=== PATIENT | female | born 1970 | race Caucasian/White ===

== ENCOUNTER 2017-06-04 18:38 | Emergency (ER) | payer BC, MEDICARE ==
[2017-06-04] MEDS ORDERED: hydrOXYzine HCL TAB* 50 MG PO ONE (21:32)
[2017-06-04] MEDS ORDERED: Hydrocortisone 0.5% OINT* 1 APPLIC TUBE TOPICAL ONE (21:32)
[2017-06-04 21:48] VITALS: BP 153/91
--- NOTE | 2017-06-04 22:33 | ED ---
Skin Complaint - HPI Summary HPI Summary: Patient presents to the ED with CC "bugs crawling out of my skin" with associated pruritis. She states she thinks the problem is that she has fluke worms. She states she had a friend tell her she thought it was fluke worms and the patient notes to eating a "bad cantaloupe" several weeks ago as well. She brings with her photos, "dried bugs" which are in a plastic wrap from which she dislodged from her skin and brown flakes which she had in her teeth for which she states the fluke worms are coming from. She states 1 month ago prior to coming to [place] from [place], she was in perfect health, had healthy teeth and gums and denies any skin conditions. Since arrival to the [place] area, she states all these symptoms began. She has a PCP in [place] but none currently. While she is just visiting this month, she plans to move here within the next month. She denies abdominal pain, N/V, weight loss/gain, fevers, sweats or chills. She denies travel or any allergies to the environment. She takes no medications and states she is otherwise healthy. She notes to a rash which is pruritic and across the bilateral forearms, nape of the neck and chest. - History of Current Complaint Chief Complaint: EDRashSkinAbscess Time Seen by Provider: 06/04/17 20:17 Stated Complaint: RASH ALL OVER Hx Obtained From: Patient Onset/Duration: Started Weeks Ago Skin Exposure Onset/Duration: Weeks Ago Timing: Constant Onset Severity: Moderate Current Severity: Moderate Pain Intensity: 0 Skin Location: Diffuse Character: Pruritus, Redness Aggravating Symptom(s): Nothing Alleviating Symptom(s): Nothing Associated Signs & Symptoms: Negative Related History: Possible Reaction to: Food, Possible Reaction to: Environmental Exposure - Allergy/Home Medications Allergies/Adverse Reactions: Allergies Allergy/AdvReac Type Severity Reaction Status Date / Time Hydrocodone Allergy Hives Verified 06/04/17 18:53 Oxycodone Allergy Hives Verified 06/04/17 18:53 PMH/Surg Hx/FS Hx/Imm Hx Previously Healthy: Yes - Immunization History Hx Pertussis Vaccination: No Immunizations Up to Date: Unable to Obtain/Confirm Infectious Disease History: No Infectious Disease History: Denies: Traveled Outside the [place] in Last 30 Days - Social History Occupation: Unemployed Lives: With Family Alcohol Use: None Hx Substance Use: No Substance Use Type: Reports: None Hx Tobacco Use: Yes Smoking Status (MU): Former Smoker Review of Systems Constitutional: Negative Negative: Fever, Chills, Fatigue Eyes: Negative Negative: Blurred Vision Negative: Dental Pain Cardiovascular: Negative Negative: Palpitations, Chest Pain Respiratory: Negative Negative: Abdominal Pain, Diarrhea, Nausea Positive: Other - few (4-5) small erythematous macules to the bilateral forearms resembling a small abrasion or bug bite Neurological: Negative Negative: Weakness, Numbness Psychological: Normal All Other Systems Reviewed And Are Negative: Yes Physical Exam Triage Information Reviewed: Yes Vital Signs On Initial Exam: Initial Vitals Temp Pulse Resp BP Pulse Ox 97.5 F 94 18 128/80 99 06/04/17 18:53 06/04/17 18:53 06/04/17 18:53 06/04/17 18:53 06/04/17 18:53 Completion Of Physical Exam Limited Due To: Dementia Appearance: Positive: Well-Appearing, No Pain Distress, Well-Nourished Skin: Positive: Skin Color Reflects Adequate Perfusion, Other - few (4-5) small erythematous macules to the bilateral forearms resembling a small abrasion or bug bite Head/Face: Positive: Normal Head/Face Inspection Eyes: Positive: EOMI, GARRY, Conjunctiva Clear Neck: Positive: Supple, No Lymphadenopathy Respiratory/Lung Sounds: Positive: Clear to Auscultation, Breath Sounds Present Cardiovascular: Positive: Normal, Pulses are Symmetrical in both Upper and Lower Extremities Musculoskeletal: Positive: Strength/ROM Intact Neurological: Positive: Sensory/Motor Intact, Alert, Oriented to Person Place, Time, Speech Normal Psychiatric: Positive: Normal - [place] Coma Scale Best Eye Response: 4 - Spontaneous Best Motor Response: 6 - Obeys Commands Best Verbal Response: 5 - Oriented Diagnostics - Vital Signs Vital Signs Temp Pulse Resp BP Pulse Ox 06/04/17 21:06 97.8 F 93 18 153/91 100 06/04/17 18:53 97.5 F 94 18 128/80 99 - Laboratory Lab Statement: Any lab studies that have been ordered have been reviewed, and results considered in the medical decision making process. Course/Dx - Course Course Of Treatment: During course of treatment, patient was evaluated for possible bug bites vs fluke worms vs GI issues vs general pruritis. She states she thinks the problem is that she has fluke worms. She states she had a friend tell her she thought it was fluke worms and the patient notes to eating a "bad cantaloupe" several weeks ago as well. She brings with her photos, "dried bugs" which are in a plastic wrap from which she dislodged from her skin and brown flakes which she had in her teeth for which she states the fluke worms are coming from. Denies fevers, sweats or chills. There is no concern for viral episode and unlikely fluke worms based on the presentation. She is given hydroxyzine for bilateral arm itching and hydrocortisone cream .5%. Patient agrees to follow up with beef specialist and channel lip wetter if symptoms become worse. It was explained to patient this is likely bug bites, but the pattern is not consistent with bed bugs. There is no identified burrows inbetwixt the fingers and no burrows obvious in the chest area. Will defer at this time for premetherin cream and again she is referred to derm for a more thorough workup of the skin lesions. - Differential Diagnoses - Skin Complaint Differential Diagnoses: Contact Dermatitis, Eczema, Head Lice, Scabies, Tick Born Illness - Diagnoses Provider Diagnoses: Generalized pruritus Discharge - Discharge Plan Condition: Stable Disposition: HOME Prescriptions: Hydrocortisone 0.5% CM(NF) [Hydrocortisone 0.5% CREAM(NF)] 1 applic .SEE ORDER BID #1 applic hydrOXYzine HCL TAB* [Atarax 25 MG TAB*] 25 mg PO TID PRN #21 tab PRN Reason: Itching Patient Education Materials: Itchy Skin (ED) Referrals: [facility] [Provider Group] [facility] [Provider Group] [facility] [Outside] Jackelin Leavitt MD [Primary Care Provider] - Additional Instructions: [facility] [address] [place] [address] Mon-Ida 8:00a-5:00p; Fri 8:00a-12:00p If symptoms persist, please follow up with GI and dermatology I have also given you a phone number to call to establish a PCP in the area. If your symptoms become worse, return to the ED immediately
== END 2017-06-04 22:17 | disposition home or self-care (01) ==
LOC: ED 18:38
DX: L29.9 Pruritus, unspecified (principal); Z87.891 Personal history of nicotine dependence
CPT/HCPCS: 99282; A9270-GY